=== PATIENT | female | born 1950 | race Caucasian/White ===

== ENCOUNTER → 2020-05-03 | Day surgery (SDC) | payer BC, MEDICARE ==
[2020-04-29 11:22] LABS: Basophils # (auto) 0.1 10 ^3/uL (0-0.2); Basophils % (auto) 1.1 % (0.0-2.0); Eosinophils # (auto) 0.5 10 ^3/uL (0-0.8); Eosinophils % (auto) 5.4 % (0.0-7.0); Hematocrit 40.4 % (36.0-46.0); Hemoglobin 13.4 g/dL (12.2-16.2); Lymphocytes # (auto) 1.8 10 ^3/uL (0.4-5.4); Lymphocytes % (auto) 18.6 % (10.0-50.0); Mean Corpuscular Hemoglobin 29.8 pg (28.0-32.0); Mean Corpuscular Hgb Conc. 33.1 g/dL (32.0-36.0); Mean Corpuscular Volume 90.2 fL (80.0-100.0); Monocytes # (auto) 0.6 10 ^3/uL (0-1.3); Monocytes % (auto) 6.5 % (0.0-12.0); Neutrophils # (auto) 6.6 10 ^3/uL (1.6-8.6); Neutrophils % (auto) 68.4 % (37.0-80.0); Platelet Count (auto) 314 10^3/uL (140-450); Red Blood Cells 4.48 10^6/uL (4.0-5.20); Red Cell Distribution Width 16.9 % (11.8-14.3); White Blood Cell 9.6 10^3/uL (4.4-10.8)
[2020-04-29 11:42] LABS: INR 0.99 (0.9-1.15); Partial Thromboplastin Time 27.7 sec (23.0-31.2)
[~2020-05-03] VITALS: Ht 167.6 cm; Wt 70.3 kg
[~2020-05-03] MED LIST: ALPR0.25 PO; ASPI81CH43 PO; ATOR10TA PO; FLUT110A INH; OME20GT PO; SODIUM CHLORIDE LOCK 10 ML ONE; UMEC1AER IN; ZOLP10TA PO; fentaNYL CITRATE 100 MCG/2 ML VL ONE
[2020-05-03] MEDS: MIDAZOLAM HCL 5 MG/ML-1ML VIAL ONE ×3 (15:00→15:05)
[2020-05-03] MEDS: fentaNYL CITRATE 100 MCG/2 ML VL ONE ×2 (15:00→15:02)
[2020-05-03] MEDS: diphenhdrAMINE HCL 50 MG/1 ML VL ONE ×2 (15:01→15:05)
[2020-05-03 15:47] VITALS: BP 129/106
== END | disposition home or self-care (01) ==
LOC: GI 11:21
PROVIDERS: ATTEND Internal Medicine Gastroenterology
DX: K92.1 Melena (principal); K63.89 Other specified diseases of intestine; K62.6 Ulcer of anus and rectum; J44.9 Chronic obstructive pulmonary disease, unspecified; F17.200 Nicotine dependence, unspecified, uncomplicated; Z79.899 Other long term (current) drug therapy; Z98.890 Other specified postprocedural states; Z20.828 Contact with and (suspected) exposure to other viral communicable diseases
CPT/HCPCS: 36415; 45380; 85025; 85610; 85730; 88304; 88305; J1200; J2250; J3010; J7030; U0003; 99152